=== PATIENT | male | born 1980 | race African-American/Black ===

== ENCOUNTER 2024-05-08 10:51 | Emergency (ER) | payer MEDICAID, SELFPAY ==
--- NOTE | ~2024-05-08 | CT_ITS ---
EXAMINATION: CT HEAD WITHOUT CONTRAST CLINICAL INFORMATION: Headache COMPARISON: None available. TECHNIQUE: Contiguous axial imaging was performed from the skull base to vertex without intravenous administration of contrast. DLP: [id number] examination was performed using dose optimization techniques as appropriate, variously including the following: *Automated exposure control *Adjustment of mA and/or kV according to patient size (this includes techniques or standardized protocols for targeted exams where dose is matched to indication/reason for exam; i.e. extremities or head) *Use of iterative reconstruction technique FINDINGS: There is no acute intra-axial, extra-axial bleed, masses or midline shift. There is no acute infarction in evolution. The dominguez to white matter differentiation is maintained normal. The lateral ventricles are symmetrical in size and configuration without enlargement. Bone windows reveal no calvarial abnormality. There is no scalp soft tissue abnormality. Bilateral paranasal sinuses and mastoid air cells are well-aerated. CT/CT head/brain wo IV con IMPRESSION: No acute intracranial process seen. Electronically signed by: Eran Hernandez MD 05/08/2024 12:57 PM EST
--- NOTE | ~2024-05-08 | XR_ITS ---
CLINICAL HISTORY: pain 1 view abdomen Comparison: None Findings: No consolidation of the imaged lung bases. No small bowel dilatation. Severe stool burden is present, including imaged cecum. Moderate to large phleboliths noted in the pelvis. 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 IMPRESSION: 1. No small bowel obstruction. 2. Severe stool burden present. This document has been electronically signed by: Hany Pa MD on 05/08/2024 19:20:11
[2024-05-08 11:52] VITALS: BP 137/94; PULSE 85; RESP 18; TEMP 36.6; O2SAT 99; BMI 24.7
--- NOTE | 2024-05-08 11:55 | ED_ITS ---
HPI - General Adult General Chief complaint: General Medical Stated complaint: Head Pain Time Seen by Provider: 05/08/24 18:00 Source: patient Limitations: language barrier History of Present Illness ED Provider: Elina uD PA-C HPI narrative: 43-year-old male presents with multiple complaints. Patient states that he has been having lower abdominal discomfort for a year. The pain is generalized, he is on a bili to describe the nature of his discomfort, and it has been intermittent. Denies nausea vomiting diarrhea, constipation or fever. In addition patient states he has been experiencing burning with urination, denies penile discharge. He also denies risk for STD, he states he has been celibate for 2 years. Lastly, patient developed a headache yesterday, it is generalized, he has not tried any aove-jox-wfbdpcy remedies to manage his discomfort. Denies neck pain, recent cough or cold symptoms, visual disturbance,. No head trauma. He does not use a blood thinner. Related Data Allergies Allergy/AdvReac Type Severity Reaction Status Date / Time No Known Allergies Allergy Verified 05/08/24 11:58 Review of Systems 2 Review of Systems: Yes all other systems are reviewed and are negative Constitutional: Constitutional: Denies fatigue, Denies fever(s) and Reports headache(s) Eyes: Eyes: Denies change in vision ENT: Reports headache(s) and Denies neck pain Cardiovascular: Cardiovascular: Denies chest pain and Denies dyspnea Respiratory: Respiratory: Denies cough and Denies dyspnea Gastrointestinal: Gastrointestinal: Reports abdominal pain, Denies constipation, Denies diarrhea, Denies nausea and Denies vomiting Musculoskeletal: Musculoskeletal: Denies neck pain Neurologic: Reports headache(s) Endocrine: Endocrine: Denies fatigue [facility] Past Medical History Attestation statement: The following information was validated with the patient. Social History Social History Smoked in Last 30 Days: No Use of substances other than those prescribed or required for medical reasons: No Advance Directives: No Advance Directives Information Provided: No Do you have a plan to hurt others: No Plan Physical Exam ED Vital Signs: Vital Signs - 24 hr 05/08/24 11:52 05/08/24 16:51 05/08/24 19:03 Temperature 97.9 F 97.8 F Pulse Rate 85 74 77 Respiratory Rate 18 16 18 Blood Pressure 137/94 H 145/94 H 137/95 H Pulse Oximetry 99 99 100 Oxygen Delivery Method Room Air Room Air BMI result Body Mass Index 24.7 Const Other: Alert well-appearing Orientation/consciousness: patient oriented x3 Neck Other: Soft supple, full range of motion no meningeal signs Resp Effort & Inspection: normal respiratory effort Cardio Other: Normal peripheral perfusion GI Other: Abdomen is soft, nondistended nontender no guarding Skin Other: Warm dry no rash Neuro General: patient oriented x3, gait normal, no focal motor deficits and CN's II- XI intact bilaterally Psych Other: Cooperative Course Course Course Narrative: RME, this is a rapid medical exam performed by Lew Bray please refer to primary provider for complete H&P- 43 year old primarily Lebanese Creole speaking female presents for evaluation of a headache for over 1 year. She reports that headache is constant. She also complains with abdominal pain and pain with urination. She appears well. Plan for CT scan of the brain, labs, urinalysis and testing. Medications Administered Discontinued Medications Generic Name Dose Route Start Last Admin Trade Name Freq PRN Reason Stop Dose Admin Acetaminophen 975 mg 05/08/24 18:14 05/08/24 18:54 Acetaminophen 325 Mg Tablet PO 05/08/24 18:15 975 mg ONCE ONE Administration Ibuprofen 600 mg 05/08/24 18:14 05/08/24 18:54 Ibuprofen 600 Mg Tablet PO 05/08/24 18:15 600 mg ONCE ONE Administration Medical Decision Making Medical Decision Making [facility] Narrative: 43-year-old male presents with multiple complaints. Patient states that he has been having lower abdominal discomfort for a year. The pain is generalized, he is on a bili to describe the nature of his discomfort, and it has been intermittent. Denies nausea vomiting diarrhea fever. In addition patient states he has been experiencing burning with urination, denies penile discharge. He also denies risk for STD, he states he has been celibate for 2 years. Lastly, patient developed a headache yesterday, it is generalized, he has not tried any atfv-xci-tccljrm remedies to manage his discomfort. Denies neck pain, recent cough or cold symptoms, visual disturbance,. No head trauma. He does not use a blood thinner. No chronic issues History: Per patient I have considered the following differential diagnoses: UTI, urethritis, appendicitis, constipation, diverticulitis, intracranial hemorrhage, meningitis Plan: Screening labs including a urinalysis were obtained from triage and a CT of the brain. In regard to the headache, patient did not try any tzzc-nxg-qrmzkmo interventions, he is not complaining of associated symptoms to suggest migraine, we will give Tylenol and ibuprofen. Thought about meningitis, however no meningeal signs on exam, he is afebrile. In regard to his urinary complaints, his urine is not infected, he denies symptoms of urethritis he denies risk for STD. The regard to the abdominal pain, given lower abdominal discomfort considered appendicitis versus diverticulitis, however there was no focal regions of discomfort in these regions, and he has had symptoms for over a year. He likely is constipated despite denying that he is. We will obtain a KUB. I have independently reviewed the following tests: Labs: No leukocytosis, not anemic, no electrolyte abnormality, urine not in fact CT brain: INDINGS: There is no acute intra-axial, extra-axial bleed, masses or midline shift. There is no acute infarction in evolution. The dominguez to white matter differentiation is maintained normal. The lateral ventricles are symmetrical in size and configuration without enlargement. Bone windows reveal no calvarial abnormality. There is no scalp soft tissue abnormality. Bilateral paranasal sinuses and mastoid air cells are well-aerated. CT/CT head/brain wo IV con IMPRESSION: No acute intracranial process seen. Electronically signed by: Eran Hernandez MD 05/08/2024 12:57 PM [facility] KUB:indings: No consolidation of the imaged lung bases. No small bowel dilatation. Severe stool burden is present, including imaged cecum. Moderate to large phleboliths noted in the pelvis. 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 IMPRESSION: 1. No small bowel obstruction. 2. Severe stool burden present. This document has been electronically signed by: Hany Pa MD on 05/08/2024 19:20:11 Lab Data 05/08/24 12:30 05/08/24 12:30 Labs: Lab Results 05/08/24 05/08/24 Range/Units 12:30 16:47 WBC 7.5 (4.8-10.8) X10*3/uL RBC 5.52 (4.60-5.80) X10*6/uL Hgb 15.9 (14.0-18.0) g/dl Hct 46.4 (42.0-52.0) % MCV 84.1 (80.0-98.0) fL MCH 28.8 (27.0-33.0) pg MCHC 34.3 (31.0-36.0) g/dl RDW 13.2 (11.0-16.0) % Plt Count 193 (160-400) X10*3/uL MPV 9.9 (9.4-12.4) fL Immature Gran % (Auto) 1.1 H (0.0-0.4) % Neut % (Auto) 41.4 L (45-73) % Lymph % (Auto) 46.7 H (20-40) % [place] % (Auto) 7.5 (2-11) % Eos % (Auto) 2.8 (0-4) % Baso % (Auto) 0.5 (0-2) % Lymph # (Auto) 3.5 (1.2-4.9) X10*3/uL [place] # (Auto) 0.6 (0.1-1.2) X10*3/uL Eos # (Auto) 0.2 (0.0-0.4) X10*3/uL Baso # (Auto) 0.0 (0.0-0.2) X10*3/uL Abs Immat Gran (auto) 0.08 H (0.00-0.03) X10*3/uL Absolute Neuts (auto) 3.1 (2.0-8.3) x10*3/uL Absolute Nucleated RBC 0.000 (0.0-0.012) X10*3/uL Nucleated RBC % (auto) 0.0 (0.0-0.2) /100WBC Sodium 139 (135-145) mmol/L Potassium 4.0 (3.3-5.1) mmol/L Chloride 112 H (96-108) mmol/L Carbon Dioxide 25 (22-29) mmol/L Anion Gap 6 L (12-20) BUN 10 (9-16) mg/dL Creatinine 0.74 (0.5-1.4) mg/dL Estim Creat Clear Calc 110.8 Estimated GFR > 60 Random Glucose 93 (60-115) mg/dL Calcium 8.8 (8.4-10.2) mg/dL Total Bilirubin 0.5 (0.0-1.0) mg/dL AST 22 (5-37) U/L ALT 21 (0-40) U/L Alkaline Phosphatase 71 (39-117) U/L Total Protein 6.9 (6.5-8.0) g/dL Albumin 4.0 (3.5-5.0) g/dL Lipase 23 (8-78) U/L Urine Color Yellow Urine Appearance Clear Urine pH 5.5 (5.0-9.0) Ur Specific [place] 1.010 (1.005-1.025) Urine Protein Negative (Neg-Trace) mg/dL Urine Glucose (UA) Negative (Negative) mg/dL Urine Ketones Negative (Negative) mg/dL Urine Blood Negative (Negative) Urine Nitrite Negative (Negative) Ur Leukocyte Esterase Negative (Negative) Urine RBC 0-2 (0-2) /HPF Urine WBC 0-5 (0-5) /HPF Ur Squamous Epith Cells 0-2 (0-2) /HPF Urine Bacteria None Seen (None Seen) Hyaline Casts 0-2 (0-2) /LPF Influenza Type A (PCR) NEGATIVE (Negative) Influenza Type B (PCR) NEGATIVE (Negative) RSV RNA Qual (PCR) NEGATIVE (Negative) SARS-CoV-2 RNA (RT-PCR) NEGATIVE (Negative) Discharge Plan Discharge Clinical Impression: Constipation, Headache, Dysuria Patient Disposition: Home, Self-Care Instructions: Constipation (ED), Dysuria (ED), General Headache (ED) Additional Instructions: All of your labs were completely normal, and your urine is not infected. There was no abnormality noted on the CT of your brain. The x-ray of your abdomen reveals that you are considerably constipated. See home care instructions. You need to use cqan-yip-ddwzqvw Colace, this is a stool softener, twice a day. In addition you need to use [id number] MiraLax, 3 times a day, until you begin having normal bowel movements. Follow up with your primary care provider as needed. Print Language: Carlos Farah
[2024-05-08 12:34] LABS: MANUAL DIFF FLAG NO
[2024-05-08 12:44] LABS: Basophils Percent Auto 0.5 % (0-2); Eosinophils Absolute Auto 0.2 X10*3/uL (0.0-0.4); Eosinophils Percent Auto 2.8 % (0-4); Hematocrit 46.4 % (42.0-52.0); Hemoglobin 15.9 g/dl (14.0-18.0); Imm Gran Abs Auto 0.08 X10*3/uL (0.00-0.03); Imm Gran Pct Auto 1.1 % (0.0-0.4); Lymphocytes Absolute Auto 3.5 X10*3/uL (1.2-4.9); Lymphocytes Percent Auto 46.7 % (20-40); Mean Corpuscular HGB Conc 34.3 g/dl (31.0-36.0); Mean Corpuscular Hemoglobin 28.8 pg (27.0-33.0); Mean Corpuscular Volume 84.1 fL (80.0-98.0); Mean Platelet Volume 9.9 fL (9.4-12.4); Monocytes Absolute Auto 0.6 X10*3/uL (0.1-1.2); Monocytes Percent Auto 7.5 % (2-11); Neutrophils Absolute Auto 3.1 x10*3/uL (2.0-8.3); Neutrophils Percent Auto 41.4 % (45-73); Platelet Count 193 X10*3/uL (160-400); Red Blood Count 5.52 X10*6/uL (4.60-5.80); Red Cell Distribution Width 13.2 % (11.0-16.0); White Blood Count 7.5 X10*3/uL (4.8-10.8)
[2024-05-08 12:55] LABS: Alanine Aminotransferase 21 U/L (0-40); Alkaline Phosphatase 71 U/L (39-117); Anion Gap 6 (12-20); Aspartate Amino Transferase 22 U/L (5-37); Bilirubin Total 0.5 mg/dL (0.0-1.0); Blood Urea Nitrogen 10 mg/dL (9-16); Calcium 8.8 mg/dL (8.4-10.2); Carbon Dioxide 25 mmol/L (22-29); Chloride 112 mmol/L (96-108); Creatinine Clr Calc Pharmacy 110.8; Estimated Glomerular Filt Rate > 60; Glucose Random 93 mg/dL (60-115); Lipase 23 U/L (8-78); Sodium 139 mmol/L (135-145); Total Protein 6.9 g/dL (6.5-8.0)
[2024-05-08 13:13] LABS: Influenza A PCR NEGATIVE (Negative); Influenza B PCR NEGATIVE (Negative); Resp Syncy Virus RNA Qual PCR NEGATIVE (Negative); SARS COV2 PCR INHOUSE NEGATIVE (Negative)
[2024-05-08 16:51] VITALS: BP 145/94; PULSE 74; RESP 16; O2SAT 99
[2024-05-08 17:03] LABS: Appearance Urine Clear; Color Urine Yellow; Glucose Urine UA Negative (Negative); Leukocyte Esterase Urine Negative (Negative); Nitrite Urine Negative (Negative); PH 5.5 (5.0-9.0); Urine Blood Negative (Negative); Urine Ketones Negative (Negative); Urine Protein Negative (Neg-Trace)
[2024-05-08 17:06] LABS: Bacteria Urine None Seen (None Seen); Hyaline Casts Urine 0-2 /LPF (0-2); RBC Urine 0-2 /HPF (0-2); Squamous Epithelial Cell Urine 0-2 /HPF (0-2); WBC Urine 0-5 /HPF (0-5)
[2024-05-08] MEDS: Ibuprofen 600 MG TABLET PO (18:54)
[2024-05-08] MEDS: Acetaminophen 325 MG TABLET 975 MG PO (18:54)
[2024-05-08 19:03] VITALS: BP 137/95; PULSE 77; RESP 18; TEMP 36.6; O2SAT 100
[2024-05-08 20:21] VITALS: BP 137/95; PULSE 77; RESP 18; TEMP 36.6; O2SAT 100
== END 2024-05-08 20:21 | disposition home or self-care (01) ==
PROVIDERS: Physician Assistant; Emergency Provider Emergency Medicine
DX: K59.00 Constipation, unspecified (principal); R51.9 Headache, unspecified; R30.0 Dysuria; R10.2 Pelvic and perineal pain; Z79.899 Other long term (current) drug therapy; Z03.818 Encounter for observation for suspected exposure to other biological agents ruled out
CPT/HCPCS: 0241U; 70450; 74018; 80053; 81001; 83690; 85025; 99284

== ENCOUNTER → 2024-05-08 11:59 | Outpatient (BNV) | payer SELFPAY | PROVIDERS: Visit Provider Radiology Diagnostic Radiology | DX: R51.9 Headache, unspecified (principal); R10.9 Unspecified abdominal pain | CPT/HCPCS: 70450; 74018 ==